=== PATIENT | female | born 1960 | race Caucasian/White ===

== ENCOUNTER 2020-11-20 11:32 | Observation (INO) ==
[2020-11-20] MEDS ORDERED: PANTOPRAZOLE INJ 80 MG in SODIUM CHLORIDE 0.9% 100 ML IV STA (12:39)
[2020-11-20] MEDS ORDERED: ONDANSETRON 4 MG/2 ML VIAL IV STA (12:39)
[2020-11-20] MEDS ORDERED: SODIUM CHLORIDE 0.9% 1,000 ML IV STA (12:39)
[2020-11-20] MEDS ORDERED: THIAMINE INJ 100 MG, FOLIC ACID INJ 1 MG, MAGNESIUM SULF INJ 2 GM, MULTIVITAMIN INJ 10 ... IV ONE (12:47)
[2020-11-20] MEDS ORDERED: PANTOPRAZOLE INJ 200 MG in SODIUM CHLORIDE 0.9% 250 ML IV SCH (13:00)
[2020-11-20] MEDS ORDERED: PANTOPRAZOLE 40 MG VIAL IV ONE ×2 (13:19→13:32)
[2020-11-20 13:21] LABS: Basophils % 0.2 % (0.0-0.8); Hematocrit 36.9 VOL% (35.7-47.0); Hemoglobin 12.4 GM/DL (12.0-16.0); Immature Granulocytes % 0.4 %; Immature Granulocytes Absolute 0.04 #; Lymphocytes # 0.7 10*3/uL (1.4-4.0); Lymphocytes % 6.4 % (21.3-54.2); Mean Corpuscular HGB Conc 33.6 GM/DL (32-36); Mean Corpuscular Volume 103.4 FL (87-102); Monocytes % 5.4 % (1.7-12.7); Neutrophils % 87.6 % (38.7-73.9); Platelet Count 337 T/CUMM (130-400); Red Blood Count 3.57 MC/CUMM (3.8-5.5); Red Cell Distribution Width 14.2 % (9.3-17.3); White Blood Count 10.9 T/CUMM (4-12)
[2020-11-20 13:39] LABS: PT Patient Result 10.8 SECS (10.5-12.0); Partial Thromboplastin Time 24.6 SECS (23.9-33.8)
[2020-11-20 13:40] LABS: Albumin 3.6 G/DL (3.4-5.0); Bilirubin,Total 0.7 MG/DL (0.20-1.00); Calcium 9.2 MG/DL (8.5-10.1); Potassium 3.2 MMOL/L (3.5-5.1); Total Protein 6.8 G/DL (6.4-8.2)
[2020-11-20] MEDS ORDERED: GLUCAGON 1 MG VIAL IM PRN (15:28)
[2020-11-20] MEDS ORDERED: LORazepam 2 MG/1 ML VIAL IV PRN (15:28)
[2020-11-20] MEDS ORDERED: ONDANSETRON 4 MG/2 ML VIAL IV PRN (15:28)
[2020-11-20] MEDS ORDERED: hydrALAZINE 20 MG/1 ML VIAL IV PRN (15:28)
[2020-11-20] MEDS ORDERED: DEXTROSE 50% 25 GM/50 ML VIAL IV PRN (15:28)
[2020-11-20] MEDS ORDERED: POTASSIUM CHLORIDE 20 MEQ TABLET PO ONE (15:37)
[2020-11-20] MEDS ORDERED: MAGNESIUM SULF RIDER 2 GM/50 ML PREMIX IV ONE (15:37)
[2020-11-20] MEDS: chlordiazePOXIDE 25 MG CAPSULE PO SCH ×2 (17:56→21:24)
[2020-11-20 18:45] LABS: Hematocrit 34.6 VOL% (35.7-47.0); Hemoglobin 11.3 GM/DL (12.0-16.0)
[2020-11-21 00:49] LABS: Hemoglobin 9.6 GM/DL (12.0-16.0)
[2020-11-21] MEDS: SODIUM CHLORIDE 0.9% 1,000 ML IV SCH ×3 (01:45→23:56)
[2020-11-21] MEDS: chlordiazePOXIDE 25 MG CAPSULE PO SCH ×7 (01:48→23:56)
[2020-11-21 05:25] LABS: Basophils % 0.5 % (0.0-0.8); Eosinophils # 0.1 10*3/uL (0.0-0.87); Eosinophils % 1.4 % (0.00-10.9); Hematocrit 28.4 VOL% (35.7-47.0); Hemoglobin 9.6 GM/DL (12.0-16.0); Immature Granulocytes % 0.4 %; Immature Granulocytes Absolute 0.02 #; Lymphocytes # 1.4 10*3/uL (1.4-4.0); Lymphocytes % 23.6 % (21.3-54.2); Mean Corpuscular HGB Conc 33.8 GM/DL (32-36); Mean Corpuscular Volume 104.4 FL (87-102); Mean Platelet Volume 9.3 FL (9.6-12.0); Monocytes % 9.5 % (1.7-12.7); Neutrophils % 64.6 % (38.7-73.9); Platelet Count 239 T/CUMM (130-400); Red Blood Count 2.72 MC/CUMM (3.8-5.5); Red Cell Distribution Width 14.4 % (9.3-17.3); White Blood Count 5.7 T/CUMM (4-12)
[2020-11-21 05:51] LABS: Albumin 2.5 G/DL (3.4-5.0); Bilirubin,Total 0.7 MG/DL (0.20-1.00); Calcium 7.5 MG/DL (8.5-10.1); Potassium 2.7 MMOL/L (3.5-5.1); Total Protein 4.7 G/DL (6.4-8.2)
[2020-11-21 05:53] LABS: Folate > 24.00 NG/ML (5.38-24.0); Vitamin B12 238 PG/ML (211-911)
[2020-11-21] MEDS: NICOTINE 21 MG/24 HR PATCH TRANSDERM SCH (09:12)
[2020-11-21] MEDS: POTASSIUM CHLORIDE RIDER 10 MEQ/100 ML PREMIX IV PRN ×5 (09:16→21:46)
[2020-11-21] MEDS: FOLIC ACID 1 MG TABLET PO SCH (10:12)
[2020-11-21] MEDS: MULTIVITAMIN (CENTRUM) TABLET PO SCH (10:12)
[2020-11-21] MEDS: THIAMINE 100 MG TABLET PO SCH (10:12)
[2020-11-21 11:59] LABS: Hematocrit 29.1 VOL% (35.7-47.0); Hemoglobin 9.6 GM/DL (12.0-16.0)
[2020-11-21 20:12] LABS: Hemoglobin 9.6 GM/DL (12.0-16.0)
[2020-11-21] MEDS: PANTOPRAZOLE 40 MG VIAL IV SCH (20:27)
[2020-11-21] MEDS ORDERED: LIDOCAINE 5% PATCH TRANSDERM SCH (21:00)
[2020-11-22] MEDS: chlordiazePOXIDE 25 MG CAPSULE PO SCH ×3 (02:44→12:13)
[2020-11-22 05:22] LABS: Basophils % 0.6 % (0.0-0.8); Eosinophils # 0.2 10*3/uL (0.0-0.87); Eosinophils % 2.3 % (0.00-10.9); Hematocrit 28.4 VOL% (35.7-47.0); Hemoglobin 9.2 GM/DL (12.0-16.0); Immature Granulocytes % 0.6 %; Immature Granulocytes Absolute 0.04 #; Lymphocytes # 1.1 10*3/uL (1.4-4.0); Mean Corpuscular HGB Conc 32.4 GM/DL (32-36); Mean Corpuscular Volume 107.6 FL (87-102); Mean Platelet Volume 9.4 FL (9.6-12.0); Monocytes % 7.3 % (1.7-12.7); Neutrophils % 72.2 % (38.7-73.9); Platelet Count 210 T/CUMM (130-400); Red Blood Count 2.64 MC/CUMM (3.8-5.5); Red Cell Distribution Width 14.3 % (9.3-17.3); White Blood Count 6.6 T/CUMM (4-12)
[2020-11-22 05:39] LABS: Calcium 7.6 MG/DL (8.5-10.1); Osmolality,Calculated 279.3 MOS/KG (273-304); Potassium 3.3 MMOL/L (3.5-5.1)
[2020-11-22] MEDS: POTASSIUM CHLORIDE RIDER 10 MEQ/100 ML PREMIX IV PRN (06:05)
[2020-11-22] MEDS ORDERED: MAGNESIUM SULF RIDER 2 GM/50 ML PREMIX IV ONE (07:30)
[2020-11-22] MEDS ORDERED: POTASSIUM CHLORIDE 20 MEQ TABLET PO ONE (07:30)
[2020-11-22] MEDS ORDERED: LACTATED RINGERS 1,000 ML IV SCH (08:00)
[2020-11-22] MEDS ORDERED: LIDOCAINE 2% 5 ML VIAL ONE ×2 (08:11)
[2020-11-22] MEDS ORDERED: propofoL 200 MG/20 ML VIAL IV ONE (08:11)
[2020-11-22] MEDS: MULTIVITAMIN (CENTRUM) TABLET PO SCH (09:27)
[2020-11-22] MEDS: THIAMINE 100 MG TABLET PO SCH (09:27)
[2020-11-22] MEDS: PANTOPRAZOLE 40 MG VIAL IV SCH (09:28)
[2020-11-22] MEDS: NICOTINE 21 MG/24 HR PATCH TRANSDERM SCH (09:28)
[2020-11-22] MEDS: FOLIC ACID 1 MG TABLET PO SCH (09:32)
[2020-11-22 11:24] VITALS: BP 111/60
[2020-11-22] MEDS: SODIUM CHLORIDE 0.9% 1,000 ML IV SCH (12:13)
== END 2020-11-22 15:37 | disposition home or self-care (01) ==
LOC: N.EDINP 11:32 → N.ED 11:32 → N.3E 17:44
PROVIDERS: ADMIT Internal Medicine; ATTEND Internal Medicine